=== PATIENT | female | born 1985 | race Hispanic/Latino ===

== ENCOUNTER 2022-07-06 11:47 | Emergency (ER) | payer BC ==
[~2022-07-06] VITALS: Ht 157.5 cm; Wt 73.0 kg
[2022-07-06] MEDS ORDERED: SODIUM CHLORIDE 0.9% 1000ML 1,000 ML IV STA (12:04)
[2022-07-06] MEDS ORDERED: KETOROLAC TROMETHAMINE 30 MG/ML VIAL IV ONE (12:15)
[2022-07-06] MEDS ORDERED: ONDANSETRON HCL INJ 2MG/ML 2ML 2 MG/ML VIAL IV ONE (12:15)
[2022-07-06] MEDS ORDERED: IBUPROFEN 600 MG TAB PO ONE (12:30)
[2022-07-06] MEDS ORDERED: DEXAMETHASONE SOD PHOS INJ 4 MG/ML SDV IV ONE (12:30)
[2022-07-06] MEDS ORDERED: KETOROLAC TROMETHAMINE 30 MG/ML VIAL ONE (12:53)
[2022-07-06] MEDS ORDERED: ONDANSETRON HCL INJ 2MG/ML 2ML 2 MG/ML VIAL ONE (12:53)
[2022-07-06] MEDS ORDERED: DEXAMETHASONE SOD PHOS INJ 4 MG/ML SDV ONE (12:53)
[2022-07-06] MEDS ORDERED: IBUPROFEN 600 MG TAB ONE (12:53)
[2022-07-06] MEDS ORDERED: IBUPROFEN200 MG PO (13:28)
[2022-07-06] MEDS ORDERED: ONDANSETRON ODT4 MG PO (13:28)
== END 2022-07-06 13:43 | disposition home or self-care (01) ==
LOC: FSED 12:04
DX: R20.0 Anesthesia of skin (principal); B34.9 Viral infection, unspecified; R51.9 Headache, unspecified; H53.8 Other visual disturbances; R53.1 Weakness
CPT/HCPCS: 70450; 80053; 81003; 81025; 85025; 87400; 99284; J1100; J1885; J2405